=== PATIENT | female | born 1960 | race Caucasian/White ===

== ENCOUNTER → 2018-04-24 08:46 | Outpatient (CLI) | payer OTHER, SELFPAY ==
[2018-04-24 10:01] LABS: Add Manual Diff / Slide Review NO; Basophils Percent Auto 0.9 % (0-2); Eosinophils Percent Auto 5.5 % (2-4); Hematocrit 42.9 % (36-46); Hemoglobin 14.5 g/dL (12.0-16.0); Lymphocytes Percent Auto 37.7 % (25-40); Mean Corpuscular HGB Conc 33.8 % (30-36); Mean Corpuscular Hemoglobin 30.2 PG (26-34); Mean Corpuscular Volume 89.2 fL (80-100); Monocytes Percent Auto 7.5 % (3-14); Neutrophils Absolute Auto 4600 /uL (3000-5900); Neutrophils Percent Auto 48.4 % (50-75); Platelet Count 409 X10^3/uL (150-400); Red Blood Cell Count 4.81 X10^6/uL (4.0-5.2); Red Cell Distribution Width 13.4 % (11.6-14.8); White Blood Cell Count 9.6 X10^3/uL (4.5-11.0)
[2018-04-24 10:23] LABS: Alanine Aminotransferase 30 IU/L (9-52); Albumin 4.6 g/dL (3.5-5.0); Albumin Globulin Ratio 1.5 (1.0-2.8); Alkaline Phosphatase 68 U/L (38-126); Aspartate Aminotransferase 28 IU/L (14-36); Bilirubin Total 0.6 mg/dL (0.2-1.3); Bilirubin Unconjugated 0.4 mg/dL (0.0-1.1); Globulin 3.1 g/dL (1.7-4.1); HEMOLYSIS < 15 (0-50); Total Protein 7.7 g/dL (6.3-8.2)
== END ==
PROVIDERS: Visit Provider Podiatrist
DX: B35.1 Tinea unguium (principal)
CPT/HCPCS: 36415; 80076; 85025

== ENCOUNTER → 2018-06-25 07:56 | Outpatient (CLI) | payer OTHER, SELFPAY ==
--- NOTE | 2018-06-25 | DI.MG.S_ITS ---
BILATERAL DIGITAL SCREENING MAMMOGRAM 3D/2D WITH CAD: 06/25/2018 CLINICAL: Routine screening. Family history of breast cancer. Comparison is made to exams dated: 07/23/2015 mammogram, 01/09/2014 mammogram, and 04/04/2013 mammogram - [facility] [place]. There are scattered fibroglandular elements in both breasts. Current study was also evaluated with a Computer Aided Detection (CAD) system. No significant masses, calcifications, or other findings are seen in either breast. There has been no significant interval change. IMPRESSION: NEGATIVE There is no mammographic evidence of malignancy. A 1 year screening mammogram is recommended. This exam was interpreted at Station ID: [id number]. NOTE: For mammograms, a report in lay terms will be sent to the patient. Approximately 15% of breast malignancies will not be visualized mammographically. In the management of a palpable breast mass, a negative mammogram must not discourage biopsy of a clinically suspicious lesion. Electronically Signed By: Kinsey haq/karo:06/25/2018 10:02:37 letter sent: Normal Exam ACR BI-RADS Category 1: Negative [id number]
== END ==
PROVIDERS: PCP Internal Medicine; Visit Provider Internal Medicine
DX: Z12.31 Encounter for screening mammogram for malignant neoplasm of breast (principal); Z80.3 Family history of malignant neoplasm of breast
CPT/HCPCS: 77063; 77067

== ENCOUNTER 2018-10-12 15:22 | Emergency (ER) | payer OTHER, SELFPAY ==
[2018-10-12 15:24] VITALS: BP 126/87; PULSE 87; RESP 24; TEMP 37.3; O2SAT 95; BMI 30.9
[2018-10-12] MEDS: ALBUTEROL 2.5 MG/3 ML NEB (ADULT) INH ×2 (15:41→18:17)
[2018-10-12 15:43] VITALS: PULSE 84; RESP 20; O2SAT 96
--- NOTE | 2018-10-12 16:53 | DI.RAD.S_ITS ---
PROCEDURE: XR CHEST 2V INDICATIONS: cough/short of breath/chills TECHNIQUE: 2 views of the chest were acquired. COMPARISON: None. FINDINGS: Surgical changes and devices: None. Lungs and pleura: Mild diffuse interstitial prominence. No focal consolidation. No pleural effusions or pneumothorax. Mediastinum: Mediastinal contours are normal. Heart size is normal. Bones and chest wall: No suspicious bony abnormalities. Soft tissues appear unremarkable. IMPRESSION: Nonspecific diffuse interstitial prominence without focal consolidation. Findings may represent a chronic interstitial process. However, early edema, inflammation, or infection are not excluded if clinically appropriate. Dictated by: Jono Smith M.D. on 10/12/2018 at 17:21 Approved by: Jono Smith M.D. on 10/12/2018 at 17:22
--- NOTE | 2018-10-12 17:35 | ED.SOB ---
HPI - SOB/Dyspnea <Maryse Christensen PA-C - Last Filed: 10/12/18 22:44> General Chief Complaint: Shortness of Breath/Dyspnea Stated Complaint: UNABLE TO BREATH Time Seen by Provider: 10/12/18 17:23 Source: patient Mode of arrival: ambulatory Limitations: no limitations History of Present Illness This 58-year-old female who has a long history of asthma comes in today due to worsening symptoms. She states on Monday, she developed a deep dry cough, went about her day. On Monday, she left work a little bit early due to persistent cough and feeling exhausted. She states that yesterday morning, she had a fever of 100.2 and 1 episode of vomiting. She felt more short of breath yesterday and had persistent cough. She did start using her home nebulizers which helped short-term. This morning she actually felt somewhat better initially, but quickly began to feel more tired and have dyspnea again after her shower. She has been using her home nebulizer. She states that her cough has remained nonproductive. She has also developed body aches. She states that she does not have any sore throat or earache. She states her chest is sore from coughing and breathing effort, otherwise has not had chest pain. She states she is using her Symbicort daily and also has ProAir but does not have a spacer any longer. She has occasionally needed steroids for asthma, has not been hospitalized. She is otherwise healthy and has had flu vaccine. No new pain or swelling in her extremities or any other complaints on systems review Related Data Home Medications Medication Instructions Recorded Confirmed albuterol sulfate HFA 90 2 puff INHALATION Q6H PRN 09/12/18 09/12/18 mcg/actuation aerosol inhaler ascorbic acid (vitamin C) 500 mg mg PO cap 09/12/18 09/12/18 capsule budesonide-formoterol HFA 160 2 puff INHALATION BID 09/12/18 09/12/18 mcg-4.5 mcg/actuation aerosol inhaler cholecalciferol (vitamin D3) 2,000 2,000 unit PO DAILY 09/12/18 09/12/18 unit capsule mecobalamin (vitamin B12) 1,000 1,000 mcg SL DAILY 09/12/18 09/12/18 mcg disintegrating tablet,sublingual omega 7-[id number]-[id number]-fish oil 1,000 mg cap PO cap 09/12/18 09/12/18 (120 mg-180 mg) capsule Previous Rx's Medication Instructions Recorded ipratropium-albuterol 3 ml INHALATION Q8-12H #90 ml 10/12/18 oseltamivir [Tamiflu] 75 mg PO BID 5 Days #10 cap 10/12/18 prednisone 40 mg PO DAILY #8 tab 10/12/18 promethazine-codeine 5 ml PO Q4-6H PRN #120 ml 10/12/18 Allergies Allergy/AdvReac Type Severity Reaction Status Date / Time No Known Drug Allergies Allergy Verified 09/12/18 15:57 Review of Systems <Maryse Christensen PA-C - Last Filed: 10/12/18 22:44> Review of Systems ROS Unobtainable: All systems reviewed & are unremarkable except as noted in HPI and below PFSH <Maryse Christensen PA-C - Last Filed: 10/12/18 22:44> Medical History Asthma (Chronic) No pertinent family history (Chronic) Surgical History No pertinent past surgical history (Chronic) Social History Smoking Status: Former smoker Social History Smoking Status: Former smoker Exam <Maryse Christensen PA-C - Last Filed: 10/12/18 22:44> Narrative Exam Narrative: GENERAL APPEARANCE: Patient sitting comfortably, in no distress. HEAD: No sinus TTP. EYES: PERRL, EOMI. EARS: Normal auditory canals, TMS intact with normal light reflexes. ORAL CAVITY: Normal oropharynx. THROAT: Mild erythema and postnasal drip, no exudate NECK/THYROID: Neck supple, full range of motion, no cervical lymphadenopathy. LUNGS: Breath sounds are a bit coarse without clear wheeze, no crackles, hoarse dry cough on exam. Breath sounds improved after nebulizer HEART: RRR without murmur, nl S1, S2, no S3 or S4. EXTREMITIES: No edema, no calf tenderness Initial Vital Signs Initial Vital Signs: Vital Signs Temperature 99.1 F 10/12/18 15:24 Pulse Rate 87 10/12/18 15:24 Respiratory Rate 24 10/12/18 15:24 Blood Pressure 126/87 10/12/18 15:24 Pulse Oximetry 95 10/12/18 15:24 <Laura Rivas DO - Last Filed: 10/13/18 19:24> Initial Vital Signs Initial Vital Signs: Vital Signs Temperature 99.1 F 10/12/18 15:24 Pulse Rate 87 10/12/18 15:24 Respiratory Rate 24 10/12/18 15:24 Blood Pressure 126/87 10/12/18 15:24 Pulse Oximetry 95 10/12/18 15:24 Course <Maryse Christensen PA-C - Last Filed: 10/12/18 22:44> Additional Information: Patient feels a little shaky but significantly improved following nebulizer treatments. Symptoms developed just about 72 hr ago. She would like to go ahead and treat with Tamiflu which is reasonable given her asthma. We will also continue prednisone for a few days along with adding DuoNeb to her nebulizer regimen. She was given spacer training here as well as promethazine with codeine to help her cough and sleep. She agreed to return if any acutely worsening symptoms prior to following up with PCP next week Orders Ordered: Discontinued Medications Albuterol (Ventolin) 2.5 mg INH NOW ONE Stop: 10/12/18 15:41 Last Admin: 10/12/18 15:41 Dose: 2.5 mg Albuterol (Ventolin) 2.5 mg INH NOW ONE Stop: 10/12/18 17:54 Last Admin: 10/12/18 18:17 Dose: 2.5 mg Albuterol/Ipratropium (Duoneb) 3 ml INH NOW ONE Stop: 10/12/18 17:54 Last Admin: 10/12/18 18:17 Dose: 3 ml Prednisone (Deltasone) 40 mg PO NOW ONE Stop: 10/12/18 17:54 Last Admin: 10/12/18 18:54 Dose: 40 mg Vital Signs - 8 hr 10/12/18 15:24 10/12/18 15:43 10/12/18 18:17 Temperature 99.1 F Pulse Rate 87 84 81 Respiratory Rate 24 20 16 Blood Pressure 126/87 Pulse Oximetry 95 96 97 10/12/18 19:24 Temperature Pulse Rate 95 H Respiratory Rate 18 Blood Pressure 135/85 Pulse Oximetry 97 <Laura Rivas DO - Last Filed: 10/13/18 19:24> Orders Ordered: Discontinued Medications Albuterol (Ventolin) 2.5 mg INH NOW ONE Stop: 10/12/18 15:41 Last Admin: 10/12/18 15:41 Dose: 2.5 mg Albuterol (Ventolin) 2.5 mg INH NOW ONE Stop: 10/12/18 17:54 Last Admin: 10/12/18 18:17 Dose: 2.5 mg Albuterol/Ipratropium (Duoneb) 3 ml INH NOW ONE Stop: 10/12/18 17:54 Last Admin: 10/12/18 18:17 Dose: 3 ml Prednisone (Deltasone) 40 mg PO NOW ONE Stop: 10/12/18 17:54 Last Admin: 10/12/18 18:54 Dose: 40 mg Vital Signs - 8 hr 10/12/18 15:24 10/12/18 15:43 10/12/18 18:17 Temperature 99.1 F Pulse Rate 87 84 81 Respiratory Rate 24 20 16 Blood Pressure 126/87 Pulse Oximetry 95 96 97 10/12/18 19:24 Temperature Pulse Rate 95 H Respiratory Rate 18 Blood Pressure 135/85 Pulse Oximetry 97 MDM - SOB/Dyspnea <Maryse Christensen PA-C - Last Filed: 10/12/18 22:44> Lab Data Lab Results 10/12/18 Range/Units 16:55 Influenza A & B (PCR) Positive, type a A (Negative) <Laura Rivas DO - Last Filed: 10/13/18 19:24> Lab Data Lab Results 10/12/18 Range/Units 16:55 Influenza A & B (PCR) Positive, type a A (Negative) Discharge Plan Departure Patient Disposition: Home Clinical Impression: Influenza A Asthma with exacerbation Qualifiers: Asthma severity: moderate Asthma persistence: persistent Qualified Code(s): J45.41 - Moderate persistent asthma with (acute) exacerbation Discharge Date/Time: 10/12/18 19:24 Interventions: ED Discharge Assessment Last Done: 10/12/18 19:24 Instructions: DI for Asthma -- Adult, DI for Influenza -- Adult Activity Restrictions/Additional Instructions: Please return as we talked about if you have any acutely worsening symptoms. Please take your next dose of prednisone tomorrow morning. Take the Tamiflu as soon as you pick it up and 2nd dose 1st thing in the morning. You can use the cough syrup as needed, but do not take it and drive as it may make you sleepy. Please use the albuterol/Atrovent combination nebulizer twice daily, and your albuterol as often as needed in between to help with your breathing. You should rest at home and plan to remain off of work until you are feeling better. Please follow-up with your PCP early next week to recheck your asthma. Prescriptions: New ipratropium-albuterol 0.5 mg-3 mg(2.5 mg base)/3 mL solution for nebulization 3 ml INHALATION Q8-12H Qty: 90 RF: 0 prednisone 20 mg tablet 40 mg PO DAILY Qty: 8 RF: 0 promethazine-codeine 6.25-10 mg/5 mL syrup 5 ml PO Q4-6H PRN (Reason: cough) Qty: 120 RF: 0 oseltamivir [Tamiflu] 75 mg capsule 75 mg PO BID 5 Days Qty: 10 RF: 0 No Action albuterol sulfate 90 mcg/actuation HFA aerosol inhaler 2 puff INHALATION Q6H PRNRF: 0 Symbicort 160-4.5 mcg/actuation HFA aerosol inhaler 2 puff INHALATION BID RF: 0 cholecalciferol (vitamin D3) 2,000 unit capsule 2,000 unit PO DAILY RF: 0 omega 8-mhh-czd-fish oil [Fish Oil] 1,000 mg (120 mg-180 mg) capsule PO RF: 0 mecobalamin (vitamin B12) 1,000 mcg tablet,disintegrating 1,000 mcg SL DAILY RF: 0 ascorbic acid (vitamin C) 500 mg capsule PO RF: 0 Referrals: Ayse Shukla MD [Primary Care Provider] - <Laura Rivas DO - Last Filed: 10/13/18 19:24> Cosign ED Attending Cosignature Attestation: I was immediately available in the department for consultation. This documentation has been reviewed and I agree with assessment and plan. Supervised by Laura Rivas DO
[2018-10-12 18:17] VITALS: PULSE 81; RESP 16; O2SAT 97
[2018-10-12] MEDS: ALBUTEROL/IPRATROPIUM 3 ML AMPUL INH (18:17)
[2018-10-12] MEDS: predniSONE 20 MG TABLET 40 MG PO (18:54)
[2018-10-12 19:24] VITALS: BP 135/85; PULSE 95; RESP 18; O2SAT 97
== END 2018-10-12 19:24 | disposition home or self-care (01) ==
PROVIDERS: Emergency Medicine; Emergency Provider Internal Medicine; PCP Internal Medicine
DX: J45.41 Moderate persistent asthma with (acute) exacerbation (principal)
CPT/HCPCS: 71046; 87400; 93005; 93010; 94150; 94640; 99282; 99284; J7613

== ENCOUNTER → 2018-10-19 12:43 | Outpatient (CLI) | payer OTHER, SELFPAY ==
[2018-10-19 14:27] LABS: Blood Urea Nitrogen 14 mg/dL (7-17); Calcium 9.2 mg/dL (8.4-10.2); Carbon Dioxide 27 mmol/L (22-32); Chloride 102 mmol/L (98-107); Cholesterol 213 mg/dL (140-199); Estimated Glomerular Filt Rate > 60.0 mL/min (>60); Glucose 83 mg/dL (70-100); HDL Cholesterol 45 mg/dL (40-60); HEMOLYSIS 18 (0-50); LDL Cholesterol Calculated 118 mg/dL (<100); Sodium 139 mmol/L (137-145); Triglycerides 248 mg/dL (35-150)
[2018-10-19 14:59] LABS: TSH w/ Reflex to FT4 1.38 uIU/mL (0.47-4.68)
== END ==
PROVIDERS: PCP Internal Medicine; Visit Provider Internal Medicine
DX: E78.5 Hyperlipidemia, unspecified (principal); R03.0 Elevated blood-pressure reading, without diagnosis of hypertension
CPT/HCPCS: 36415; 80048; 80061; 84443